=== PATIENT | female | born 1935 | race Caucasian/White ===

== ENCOUNTER 2020-02-29 08:38 | Observation (INO) | payer MEDICARE, OTHER ==
[2020-02-26 15:50] LABS: BASOPHILS # (AUTO) 0.1 (0.0-0.1); BASOPHILS % 0.8 % (0.0-1.0); EOSINOPHILS # (AUTO) 0.1 (0.0-0.4); HEMATOCRIT 41.4 % (34.2-44.1); HEMOGLOBIN 13.5 g/dL (12.0-16.0); LYMPHOCYTES # (AUTO) 2.5 (1.0-3.2); LYMPHOCYTES % 38.8 % (18.0-39.1); MEAN CORPUSCULAR HGB CONC 32.6 g/dL (31-35); MONOCYTES # (AUTO) 1.1 (0.2-0.8); NEUTROPHILS # (AUTO) 2.7 (2.1-6.9); NEUTROPHILS % 41.2 % (38.7-80.0); PLATELET COUNT 275 x10e3/uL (140-360); RED CELL DISTRIBUTION WIDTH 14.1 % (11.7-14.4)
[2020-02-26 16:09] LABS: ANION GAP 17.3 mmol/L (8-16); CALCIUM 9.5 mg/dL (8.4-10.2); CREATININE, SERUM 0.93 mg/dL (0.57-1.11); POTASSIUM 4.3 mmol/L (3.5-5.1)
[2020-02-26 16:23] LABS: ALBUMIN/GLOBULIN RATIO 1.1 (0.8-2.0)
--- NOTE | 2020-02-26 16:30 | Diagnostic Imaging Report ---
Exam: CHEST 2 VIEWS Date: 02/26/2020 4:24 PM INDICATION: ^[id number] ^[id number] ^PRE-OP Comparison: None FINDINGS: Lines/Tubes:None Lungs:The lungs are mildly hyperexpanded. No focal consolidation or pulmonary edema. Pleura:No pleural effusion. No pneumothorax. Heart/Mediastinum:Cardiomediastinal silhouette is within normal limits for size. Mild central vascular congestion is noted. Thoracic aorta is tortuous with calcifications of the aortic knob. Pleural thickening is noted at the apices. Bones/Soft Tissues: No acute osseous abnormality. Severe multilevel degenerative changes of the spine are noted. Upper abdomen: Unremarkable. IMPRESSION: 1. Negative for focal consolidation. 2. Mild hyperexpansion of the lungs can be seen in patients with COPD. Signed by: Indra Barrientos MD on 02/26/2020 4:27 PM
[~2020-02-29] VITALS: Ht 154.9 cm; Wt 69.9 kg
[~2020-02-29 08:38] MED LIST: ATENOLOL50 MG PO; HYDROCHLOROTHIA25 MG PO; METHENAMINE HIPP1 GM PO
[2020-02-29] MEDS ORDERED: ONDANSETRON HCL INJ 2MG/ML 2ML 2 MG/ML VIAL IV PRN (12:30)
[2020-02-29] MEDS ORDERED: HYDROMORPHONE 1MG/1ML INJ ONE ×2 (12:49→13:28)
[2020-02-29] MEDS ORDERED: MORPHINE SULFATE INJ 4 MG/ML INJ 1ML ONE (13:08)
--- OUTSIDE RECORDS SUMMARY | 2020-02-29 13:47 | XMS REPORT | Continuity of Care Document ---
Author Author [facility] t Organization [facility] Address [address] [place] [address] Phone Unavailable Care Team Providers Care Member Of [employer] Name Role Phone Asked, Pcp No PCP Unavailable Brenna BECK Attphys Unavailable Jenniffer Huitron NP Attphys Radha Vaca MA Attphys Unavailable Payers Payer Name Policy Type Policy Number Effective Date Expiration Date S sadaf MEDICAREMEDICARE PART A AND [id number]-PresentHOU MACIEJ IAMedicare xxxxxxxxxxx 1999 00:00:00 [place] AARPAARP SUPPLEMENTxxxxxxxxxxx2015-PresentCommercial xxxxxxxxxxx 2015 00:00:00 [place] Problems This patient has no known problems. Allergies, Adverse Reactions, Alerts This patient has no known allergies or adverse reactions. Family History Family Member Diagnosis Comments Start Date Stop Date Source Natural father Throat cancer [place] Natural mother Heart failure [place] Social History Social Habit Start Date Stop Date Quantity Comments Source History of tobacco use Current smoker [place] History SDOH Alcohol Std Drinks [place] History SDOH Alcohol Binge [place] Sex Assigned At [facility] [facility] Alcohol intake 2019-11-16 00:00:00 2019-11-16 00:00:00 Current drinker of alcohol (finding) [place] History SDOH Alcohol Frequency 2019-11-14 00:00:00 2019-11-14 00:00:0 0 2 [place] Alcohol Comment 2019-11-14 00:00:00 2019-11-14 00:00:00 social [place] Smoking Status Start Date Stop Date Source Former smoker 2019-11-16 00:00:00 2019-11-16 00:00:00 [place] Oconnor Medications Ordered Medication Name Filled Medication Name Start Date Stop Da te Current Medication? Ordering Clinician Indication Dosage Frequency Signature (SIG) Comments Components Source hydrochlorothiazide (HYDRODIURIL) 25 MG tablet 2019-11-16 09:17: 35 Yes 25mg QD Take 25 mg by mouth daily. Viki Oconnor methenamine (HIPREX) 1 gram tablet 2019-11-16 09:17:35 Yes 1g Q.5D Take 1 g by mouth 2 (two) times a day with meals. Willie Oconnor multivitamin with minerals tablet 2019-11-16 09:17:35 Yes 1{tbl} QD Take 1 tablet by mouth daily. Willie rodriguez conjugated estrogens (Premarin) 0.625 mg/gram vaginal cream 2019-11-16 00:00:00 Yes Vaginal atrophy Inse rt 0.5g vaginally nightly for 2 weeks then 3 x a week Willie Oconnor atenolol (TENORMIN) 25 MG tablet 2016-03-30 00:00:00 Yes TK 1 T PO QD [place] Oconnor Vital Signs Vital Name Observation Time Observation Value Comments Source Systolic blood pressure 2019-11-16 09:15:00 169 mm[Hg] Willie Oconnor Diastolic blood pressure 2019-11-16 09:15:00 74 mm[Hg] Willie Oconnor Heart rate 2019-11-16 09:15:00 72 /min [place] Oconnor Body weight 2019-11-16 09:15:00 69.854 kg [place] Oconnor Procedures Procedure Date / Time Performed Performing Clinician Sour e [id number] 2019-11-16 10:09:00 Sandhya Huitron ethodist POC URINALYSIS DIPSTICK 2019-11-16 10:00:00 Sandhya Huitron Plan of Care Planned Activity Planned Date Details Comments Source Future Scheduled Test 2020-03-28 00:00:00 INFLUENZA VACCINE [code = INFLUENZA VACCINE] Willie Oconnor Future Scheduled Test 1999 00:00:00 65+ PNEUMOCOCCAL V ACCINE (1 of 2 - PCV13) [code = 65+ PNEUMOCOCCAL VACCINE (1 of 2 - PCV13)] Willie Oconnor Future Scheduled Test 1984 00:00:00 SHINGLES VACCINES (#1) [code = SHINGLES VACCINES (#1)] [place] Yazidi Encounters Start Date/Time End Date/Time Encounter Type Admission Type Attendi [facility] Facility Care Department Encounter ID Source 2019-11-16 00:00:00 2019-11-16 00:00:00 Outpatient SHANTELL HUITRON OR [facility] [id number] [place] Results Test Description Test Time Test Comments Results Result Comments Source CHEST 2 VIEWS 2020-02-26 16:24:00 [facility] [address] [address] Patient Name: SARA DEAL MR #: [id number] : 1935 Age/Sex: 84/F Req #: [id number] Adm Physician: Ordered by: SONIA BECK MD Report #: [id number] Location: OR Room/Bed: Procedure: [id number] DX/CHEST 2 VIEWS Exam Date: 02/26/20 Exam Time: 1554 REPORT STATUS: Signed Exam: CHEST 2 VIEWS Date: 02/26/2020 4:24 PM INDICATION: [id number] 1554 PRE-OP Comparison: None FINDINGS: Lines/Tubes:None Lungs:The lungs are mildly hyperexpanded. No focal consolidation or pulmonary edema. Pleura:No pleural effusion. No pneumothorax. Heart/Mediastinum:Cardiomediastinal silhouette is within normal limits for size. Mild central vascular congestion is noted. Thoracic aorta is tortuous with calcifications of the aortic knob. Pleural thickening is noted at the apices. Bones/Soft Tissues: No acute osseous abnormality. Severe multilevel degenerative changes of the spine are noted. Upper abdomen: Unremarkable. IMPRESSION: 1. Negative for focal consolidation. 2. Mild hyperexpansion of the lungs can be seen in patients with COPD. Signed by: Sabina Barrientos MD on 02/26/2020 4:27 PM Dictated By: SABINA BARRIENTOS MD 26 Transcribed By: JAIDEN on 02/26/201626 COPY TO: SONIA BECK MD BREAST STEREO CORE BIOPSY RIGHT 2020-01-29 08:59:18 - BREAST STEREO CORE BIOPSY RIGHTSTEREOTACTIC GUIDED BIOPSY RIGHT BREAST WITH MARKING DEVICE INSERTED: 01/23/2020CLINICAL: Stereotactic biopsy, right breast. Comparison is made to exam dated 01/09/2020 mammogram - [facility]. A stereotactic guided biopsy was performed for the asymmetry located in the right breast asymmetry previously described as in the upper outer quadrant at 11:00 m iddle depth. This was described on the previous mammography report. The skin was prepped in the usual manner. Local anesthetic was administered to the access site. The abnormality was approached from the craniocaudal aspect - since this could not be localized on the RLM view (the best view where it was seen). A biopsy needle was placed adjacent to the abnormality under computer guidance and confirmatory stereotactic mammography images were obtained to document needle placement. Once the needle was documented to be in the correct location, a specimen was obtained using an automated biopsy gun. A clip was inserted into the biopsy cavity (M shape). The specimen was sent to the laboratory for pathological analysis. However, post procedure mammogram demonstrates the biopsy marker clip in the central breast and not upper outer quadrant focal asymmetry is noted on todays examination most consistent with superimposition of breast tissue. IMPRESSION: STEREOTACTIC GUIDED BIOPSYStereotactic guided biopsy of the asymmetry in the right breast was successful with no apparent post procedure complications. Waiting for pathology results. A final report will be issued when these become available. Previously described asymmetry is consistent with superimposition of breast tissue. Final Pathology:Benign fibroglandular breast parenchyma marker both regions are mildly proliferative fibrocystic alterations without atypia association with a dependent collagenous stroma.negative for atypia/in situ or invasive malignancy.Recommendation:Benign, concordant. While this biopsy was benign (M shaped clip), the ribbon marker clip biopsy is malignant with patient having extensive segmental calcifications. Please refer to that biopsy report for further management recommendations based on breast conservation desire. Surgical consultation for management of other biopsy showing DCIS is recommended. Shubham Jaime M.D. ss/:01/29/2020 08:59:18 Entry: 01/29/2020 11:27:31Imaging Technologist: Jessica BOSCH, [facility] BRE[facility] CORE BIOPSY RIGHT 2020-01-29 08:59:18 - BREAST STEREO CORE BIOPSY RIGHTSTEREOTACTIC GUIDED BIOPSY RIGHT BREAST WITH MARKING DEVICE INSERTED: 01/23/2020CLINICAL: Stereotactic biopsy, right breast. Comparison is made to exam [facility] A stereotactic guided biopsy was performed for the asymmetry located in the right breast asymmetry previously described as in the upper outer quadrant at 11:00 m iddle depth. This was described on the previous mammography report. The skin was prepped in the usual manner. Local anesthetic was administered to the access site. The abnormality was approached from the craniocaudal aspect - since this could not be localized on the RLM view (the best view where it was seen). A biopsy needle was placed adjacent to the abnormality under computer guidance and confirmatory stereotactic mammography images were obtained to document needle placement. Once the needle was documented to be in the correct location, a specimen was obtained using an automated biopsy gun. A clip was inserted into the biopsy cavity (M shape). The specimen was sent to the laboratory for pathological analysis. However, post procedure mammogram demonstrates the biopsy marker clip in the central breast and not upper outer quadrant focal asymmetry is noted on todays examination most consistent with superimposition of breast tissue. IMPRESSION: STEREOTACTIC GUIDED BIOPSYStereotactic guided biopsy of the asymmetry in the right breast was successful with no apparent post procedure complications. Waiting for pathology results. A final report will be issued when these become available. Previously described asymmetry is consistent with superimposition of breast tissue. Final Pathology:Benign fibroglandular breast parenchyma marker both regions are mildly proliferative fibrocystic alterations without atypia association with a dependent collagenous stroma.negative for atypia/in situ or invasive malignancy.Recommendation:Benign, concordant. While this biopsy was benign (M shaped clip), the ribbon marker clip biopsy is malignant with patient having extensive segmental calcifications. Please refer to that biopsy report for further management recommendations based on breast conservation desire. Surgical consultation for management of other biopsy showing DCIS is recommended. Shubham Jaime M.D. ss/:01/29/2020 08:59:18 Entry: 01/29/2020 11:27:31Imaging Technologist: Jessica Arshad , [facility] BREAST ULTRASOUND CORE BIOPSY RIGHT 2020-01-29 08:56:18 - BREAST ULTRASOUND CORE BIOPSY RIGHTULTRASOUND GUIDED BIOPSY RIGHT BREAST WITH MARKING DEVICE INSERTED: 01/23/2020CLINICAL: Ultrasound biopsy, right breast. Comparison is made to exams dated 01/09/2020 ultrasound and 01/09/2020 mammogram - [facility]. An ultrasound guided biopsy using real-time ultrasound was performed for the palpable indistinct mass located in the right breast at 9 o'clock, posterior depth. This was described on the previous ultrasound report. The skin was prepped in the usual manner. Local anesthetic was administered to the access site. The abnormality was approached from the lateral aspect. A biopsy needle was placed adjacent to the abnormality under ultrasound guidance. Once the needle was documented to be in the correct location, a specimen was obtained using a BARD biopsy device. A clip was inserted into the biopsy cavity (RIBBON). The specimen was sent to the laboratory for pathological analysis. IMPRESSION: ULTRASOUND GUIDED BIOPSYUltrasound guided biopsy of the mass in the right breast at 9 o'clock, posterior depth, was successful with no apparent post procedure complications. Waiting for pathology results. A final report will be issued when these become available. Final Pathology:Ductal carcinoma in situ, intermediate grade, cribriform pattern, focal early comedonecrosis. Negative for evidence of invasion.Recommendation:Malignant biopsy, concordant. Of note, patient's right breast has extensive segmental calcifications spanning 8 x 5 x 6 cm (ML x AP x SI) involving the central to lower breast with calcifications extending up to the nipple. If breast conservation is desired then medial calcifications should be biopsied to evaluate extent of disease / breast MRI with and without contrast. Surgical consultation for further management and complete excision is recommended at this time.Shubham Jaime M.D. /:01/29/2020 08:56:18 Entry: 01/29/2020 11:28:34Imaging Technologist: Diamante Dangelo , [facility] BREAST ULTRASOUND CORE BIOPSY RIGHT 2020-01-29 08:56:18 - BREAST ULTRASOUND CORE BIOPSY RIGHTULTRASOUND GUIDED BIOPSY RIGHT BREAST WITH MARKING DEVICE INSERTED: 01/23/2020CLINICAL: Ultrasound biopsy, right breast. Comparison is made to exams dated 01/09/2020 ultrasound and 01/09/2020 mammogram - [facility] An ultrasound guided biopsy using real-time ultrasound was performed for the palpable indistinct mass located in the right breast at 9 o'clock, posterior depth. This was described on the previous ultrasound report. The skin was prepped in the usual manner. Local anesthetic was administered to the access site. The abnormality was approached from the lateral aspect. A biopsy needle was placed adjacent to the abnormality under ultrasound guidance. Once the needle was documented to be in the correct location, a specimen was obtained using a Betaspring biopsy device. A clip was inserted into the biopsy cavity (RIBBON). The specimen was sent to the laboratory for pathological analysis. IMPRESSION: ULTRASOUND GUIDED BIOPSYUltrasound guided biopsy of the mass in the right breast at 9 o'clock, posterior depth, was successful with no apparent post procedure complications. Waiting for pathology results. A final report will be issued when these become available. Final Pathology:Ductal carcinoma in situ, intermediate grade, cribriform pattern, focal early comedonecrosis. Negative for evidence of invasion.Recommendation:Malignant biopsy, concordant. Of note, patient's right breast has extensive segmental calcifications spanning 8 x 5 x 6 cm (ML x AP x SI) involving the central to lower breast with calcifications extending up to the nipple. If breast conservation is desired then medial calcifications should be biopsied to evaluate extent of disease / breast MRI with and without contrast. Surgical consultation for further management and complete excision is recommended at this time.Shubham Jaime M.D. ss/:01/29/2020 08:56:18 Entry: - 01/29/2020 11:28:34Imaging Technologist: Diamante Dangelo , [facility] DI[facility] MAMM BILATERAL GUNJAN CAD DIGITAL 2020-01-09 14:04:00 - DIAG MAMM BILATERAL GUNJAN CAD DIGITALBILATERAL DIGITAL DIAGNOSTIC MAMMOGRAM 3D/2D WITH CAD: 01/09/2020Digital breast tomosynthesis was performed in addition to routine CC and MLO views. Current mammographic images were evaluated by either a Touchotel M- Vu or a Soflow ImageChecker CAD (computer aided detection system). No prior exams were available for comparison. The tissue of both breasts is fibrog landular. A palpable marker is placed at the site of concern in the right breast at 9:00 and segmentally distributed coarse heterogenous calcifications are identified. Additionally an 8 millimeter focal asymmetry best seen in the RLM view (slice 19) at 11/12 o'clock, 5 cm from the nipple.No suspicious mass, architectural distortion, malignant type calcification, or lymph node abnormality detected in the left breast. INCOMPLETE: ADDITIONAL IMAGING EVALUATION NEEDEDSegmentally distributed coarse heterogenous calcifications and a focal asymmetry in the right breast. Targeted right and bilateral survey ultrasound to follow.- BREAST ULTRASOUND BILATERALULTRASOUND OF BOTH BREASTS: 01/09/2020No prior exams were available for comparison. Color flow and real-time ultrasound of both breasts were performed. Todd scale images of the real-time examination were reviewed. The breast tissue has heterogenous background echotexture. Targeted ultrasound demonstrates a hypoechoic mass with calcifications that measures 21 x 13 x 6 mm at 9 o'clock,, 2 centers from nipple at the site of proper of concern. This area correlates with the area of multiple calcifications as seen on the mammogram. Other characteristics include hypoechogenicity and internal vascularity. The rest of the bilateral survey ultrasound is negative. No axillary lymphadenopathy.IMPRESSION: SUSPICIOUS OF MALIGNANCY - FOLLOW-UP RECOMMENDED1. Hypoechoic mass at the site of palpable area of concern in the right breast at 9 o'clock, anterior depth. BI-RADS IVb. Ultrasound guided core biopsy is recommended at this time and confirmation of septations within the post biopsy samples is also recommended.2. An 8mm focal asymmetry at 11/12 o'clock, middle depth. Tomosynthesis guided core biopsy is recommended at this time, and if on the day of biopsy this cannot be visualized then a short-term follow-up is recommended.Shubham Jaime M.D. ss/:01/09/2020 14:04:00 Entry: - 01/10/2020 08:09:07Imaging Technologist: Laverne Beck , [facility] sent: BIRADS 4/5 Biopsy Mammogram BI-RADS: 0 Incomplete: Additional Imaging Evaluation Needed Ultrasound BI-RADS: 4b Suspicious abnormality - intermediate suspicion of malignancy BREAST ULTRASOUND BILATERAL 2020-01-09 14:04:00 - DIAG MAMM BILATERAL GUNJAN CAD DIGITALBILATERAL DIGITAL DIAGNOSTIC MAMMOGRAM 3D/2D WITH CAD: 01/09/2020Digital breast tomosynthesis was performed in addition to routine CC and MLO views. Current mammographic images were evaluated by either a Touchotel M- Vu or a Soflow ImageChecker CAD (computer aided detection system). No prior exams were available for comparison. The tissue of both breasts is fibrog landular. A palpable marker is placed at the site of concern in the right breast at 9:00 and segmentally distributed coarse heterogenous calcifications are identified. Additionally an 8 millimeter focal asymmetry best seen in the RLM view (slice 19) at 11/12 o'clock, 5 cm from the nipple.No suspicious mass, architectural distortion, malignant type calcification, or lymph node abnormality detected in the left breast. INCOMPLETE: ADDITIONAL IMAGING EVALUATION NEEDEDSegmentally distributed coarse heterogenous calcifications and a focal asymmetry in the right breast. Targeted right and bilateral survey ultrasound to follow.- BREAST ULTRASOUND BILATERALULTRASOUND OF BOTH BREASTS: 01/09/2020No prior exams were available for comparison. Color flow and real-time ultrasound of both breasts were performed. Todd scale images of the real-time examination were reviewed. The breast tissue has heterogenous background echotexture. Targeted ultrasound demonstrates a hypoechoic mass with calcifications that measures 21 x 13 x 6 mm at 9 o'clock,, 2 centers from nipple at the site of proper of concern. This area correlates with the area of multiple calcifications as seen on the mammogram. Other characteristics include hypoechogenicity and internal vascularity. The rest of the bilateral survey ultrasound is negative. No axillary lymphadenopathy.IMPRESSION: SUSPICIOUS OF MALIGNANCY - FOLLOW-UP RECOMMENDED1. Hypoechoic mass at the site of palpable area of concern in the right breast at 9 o'clock, anterior depth. BI-RADS IVb. Ultrasound guided core biopsy is recommended at this time and confirmation of septations within the post biopsy samples is also recommended.2. An 8mm focal asymmetry at 11/12 o'clock, middle depth. Tomosynthesis guided core biopsy is recommended at this time, and if on the day of biopsy this cannot be visualized then a short-term follow-up is recommended.Shubham Jaime M.D. ss/:01/09/2020 14:04:00 Entry: marilia - 01/10/2020 08:09:07Imaging Technologist: Laverne BOSCH, [facility] sent: BIRADS 4/5 Biopsy Mammogram BI-RADS: 0 Incomplete: Additional Imaging Evaluation Needed Ultrasound BI-RADS: 4b Suspicious abnormality - intermediate suspicion of malignancy POC BLADDER SCAN/PVR 2019-11-16 10:09:00 Test Item Urine volume (test code = 6354) 139 ML [facility] urinalysis [id number] 10:00:00* Test Item Value Reference Range Interpretation Comments Color urine, POC (test code = 7406449) Dark Yellow Clarity urine, POC (test code = 8935395) Slightly Cloudy Glucose urine, POC (test code = 3114531) Negative Negative Bilirubin urine, POC (test code = 5390040) Negative Negative Ketones urine, POC (test code = 5831047) Trace Negative A Specific gravity urine, POC (test code = 9365118) 1.015 1.00 5-1.030 Blood urine, POC (test code = 6595676) Large Negative A pH urine, POC (test code = 7692842) 5.0 5.0, 5.5, 6. 0, 6.5, 7.0, 7.5, 8.0, 8.5 Protein urine, POC (test code = 3079119) 1+ Negative A Urobilinogen urine, POC (test code = 3015887) <2.0 <2.0 Nitrite urine, POC (test code = 7185351) Negative Negative Leukocyte esterase urine, POC (test code = 1732058) Trace Ne gative A Lab Interpretation (test code = 28962-1) Abnormal [facility]
--- OUTSIDE RECORDS SUMMARY | 2020-02-29 13:47 | XMS REPORT | Clinical Summary ---
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 tablet Active methenamine (HIPREX) 1 Take 1 g by 0 gram tablet mouth 2 (two) times a day with meals. Active multivitamin with Take 1 tablet 0 minerals tablet by mouth daily. Active conjugated estrogens Insert 0.5g 30 g 1 11/15 (Premarin) 0.625 mg/gram vaginally 0 vaginal creamIndications: nightly for 2 Complete uterine weeks then 3 prolapse, Prolapse of x a week anterior vaginal wall, Rectocele, Incomplete bladder emptying, Vaginal atrophy Active Problems No known active problems Encounters Care Team Description Date Type Specialty Sandhya Westbrook NP Complete uterine prolapse (Primary Dx); Prolapse of anterior vaginal wall; Rectocele; Incomplete bladder emptying; Vaginal atrophy 11/16/2019 Office Visit Urogynecology 11/16/2019 Travel Sandhya Westbrook NP 11/14/2019 Abstract Urogynecology Sandhya Westbrook NP 11/03/2019 Telephone Urogynecology 10/17/2019 Travel Radha Vaca MA 10/17/2019 Telephone Gynecologic Oncolog y after 02/28/2019 Family History Medical History Relation Name Comments Throat cancer Father Heart failure Mother Relation Name Status Comments Father Mother Social History Date Tobacco Use Types Packs/Day Years Used Quit: 1953 Former Smoker 2 Smokeless Tobacco: Never Used Drinks/Week oz/Week Comments Alcohol Use social Yes Alcohol Habits Answer Date Recorded How often do you have a drink containing alcohol? Monthly or less 11/14/2019 How many drinks containing alcohol do you have on No t asked a typical day when you are drinking? How often do you have six or more drinks on one Not asked occasion? Sex Assigned at Date Recorded Not on file Industry Job Start Date Occupation Not on file Not on file Not on file Travel End Travel History Travel Start No recent travel history available. Last Filed Vital Signs Reading Time Taken Comments Vital Sign 169/74 11/16/2019 9:15 AM CDT Blood Pressure 72 11/16/2019 9:15 AM CDT Pulse - - Temperature - - Respiratory Rate - - Oxygen Saturation - - Inhaled Oxygen Concentration 69.9 kg (154 lb) 11/16/2019 9:15 AM CDT Weight - - Height - - Body Mass Index Plan of Treatment Health Maintenance Due Date Last Done Comments SHINGLES VACCINES (#1) 1984 65+ PNEUMOCOCCAL VACCINE 1999 (1 of 2 - PCV13) INFLUENZA VACCINE 03/28/2020 Procedures Comments Procedure Name Priority Date/Time Associated Diag nosis [id number] Routine 11/16/2019 Complete uterin e prolapse 10:09 AM CDT Vaginal atrophy POC URINALYSIS DIPSTICK Routine 11/16/2019 Comple te uterine prolapse 10:00 AM CDT after 02/28/2019 Results * POC BLADDER SCAN/PVR (11/16/2019 10:09 AM CDT) Urine volume 139 ML Specimen Urine * POC urinalysis dipstick (11/16/2019 10:00 AM CDT) Color urine, Dark Yellow POC Clarity urine, Slightly Cloudy POC Glucose urine, Negative Negative POC Bilirubin Negative Negative urine, POC Ketones urine, Trace (A) Negative POC Specific 1.015 1.005 - 1.030 gravity urine, POC Blood urine, Large (A) Negative POC pH urine, POC 5.0 5.0, 5.5, 6.0, 6.5, 7.0, 7.5, 8.0, 8.5 Protein urine, 1+ (A) Negative POC Urobilinogen <2.0 <2.0 urine, POC Nitrite urine, Negative Negative POC Leukocyte Trace (A) Negative esterase urine, POC Specimen Urine after 02/28/2019 Insurance Type Payer Benefit Subscriber ID Effective Phone Address Plan / Dates Group Medicare MEDICARE MEDICARE xxxxxxxxxxx 1999- [place], PART A AND Present [place] AARP AARP xxxxxxxxxxx [id number] SUPPLEMENT resent Advance Directives For more information, please contact: [phone] Patient Limb Driver Explanation Type Date Recorded Advance Directives, Living Will and Medical Power of Merchandise Planner
--- NOTE | 2020-02-29 14:14 | Operative Report ---
DATE OF PROCEDURE: 02/29/2020 SURGEON: Andres Beck MD PREOPERATIVE DIAGNOSIS: Carcinoma of the right breast. POSTOPERATIVE DIAGNOSIS: Carcinoma of the right breast. OPERATION PERFORMED: Right total mastectomy. CATERPILLAR MECHANIC: FIFI Mccoy. ANESTHESIA: General. COMPLICATIONS: None. ESTIMATED BLOOD LOSS: 25 mL. DESCRIPTION OF PROCEDURE: With the patient lying in bed in the supine position under good general anesthesia, the chest was prepped with Betadine solution and draped in the usual manner. An elliptical incision was then made to include the nipple areolar complex. Flaps were then developed in all directions with the margins being medially the sternum, superiorly the clavicle, inferiorly the rectus sheath and laterally the latissimus and the pectoralis fascia was then identified and the breast was slowly and carefully taken off the pectoralis muscle from medial to lateral. All bleeding points were carefully electrocoagulated and the breast was totally taken off and sent for pathological examination. The whole area was thoroughly irrigated. Perfect hemostasis was ascertained. A 10 flat Kevin-Bach drain was then left in the wound and brought out through a separate stab wound incision and sutured to the skin with 2-0 silk and the wound was then closed with interrupted vertical mattress sutures of 2-0 and 3-0 silk. A dressing was applied. The sponge, lap, and needle count was correct. The patient tolerated the procedure well and returned to the recovery room in stable condition. Andres Beck MD JLR/MODL /[id number]
--- NOTE | 2020-02-29 15:20 | NUR ---
Recvd patient from PACU, AAOX3, Rt breast dressing is intact, jonnathan drain ON, CALL LIGHT IN REACH
[2020-02-29] MEDS: SODIUM CHLORIDE 0.9% 1000ML 1,000 ML IV SCH (17:05)
[2020-02-29 17:21] VITALS: BP 129/68
[2020-02-29 17:27] VITALS: BP 129/68
[2020-02-29] MEDS: CEFAZOLIN SOD 1 GM/NS 50ML 50 ML IV SCH (17:36)
[2020-02-29] MEDS ORDERED: FENTANYL CITRATE/PF 100MCG/2 ML INJ ONE (19:54)
[2020-02-29] MEDS ORDERED: DEXAMETHASONE SOD PHOS INJ 4 MG/ML VIAL ONE (19:58)
[2020-02-29] MEDS ORDERED: ONDANSETRON HCL INJ 2MG/ML 2ML 2 MG/ML VIAL ONE (19:58)
[2020-02-29] MEDS ORDERED: LIDOCAINE HCL 2% LOCAL INJ 5 ML SDV VIAL INJ ONE (19:58)
[2020-02-29] MEDS ORDERED: EPHEDRINE SULFATE INJ 50 MG/ML VIAL ONE (19:58)
[2020-02-29] MEDS ORDERED: SEVOFLURANE INHAL SOLN 250 ML PEN BTL ONE (19:58)
[2020-02-29] MEDS ORDERED: PROPOFOL IV EMULSION 10 MG/ML 20 ML VIAL ONE (19:58)
[2020-02-29 20:00] VITALS: BP 145/67
[2020-02-29] MEDS ORDERED: ATENOLOL 50 MG TAB PO SCH (21:00)
[2020-03-01] VITALS: BP 119/72
[2020-03-01] MEDS: CEFAZOLIN SOD 1 GM/NS 50ML 50 ML IV SCH (02:28)
[2020-03-01] MEDS: ACETAMINOPHEN/CODEINE 300MG - 30MG TAB PO PRN ×2 (02:37→10:57)
[2020-03-01 04:00] VITALS: BP 106/57
[2020-03-01] MEDS: SODIUM CHLORIDE 0.9% 1000ML 1,000 ML IV SCH (05:51)
[2020-03-01 08:00] VITALS: BP 115/54
[2020-03-01 08:52] VITALS: BP 115/54
[2020-03-01] MEDS ORDERED: METHENAMINE HIPPURATE PO SCH (09:00)
[2020-03-01] MEDS ORDERED: HYDROCHLOROTHIAZIDE 25 MG TAB PO SCH (09:00)
[2020-03-01 12:00] VITALS: BP 115/62
--- NOTE | 2020-03-01 16:11 | NUR ---
Patient discharged home, Daughter Christy was here , demonstrated how to empty JOSH drain and she re-demonstrated. Dressing intact, denies any pain, no distress noted, Prescription given, Patient already scheduled appointment on Wednesday. IV canula removed with tip intact. no SS of infiltration noted. Transported via wheelchair to [facility]
== END 2020-03-01 16:00 | disposition home or self-care (01) ==
LOC: OR 08:38 → PACU V 12:30 → MED/SURG 15:08
PROVIDERS: ADMIT Surgery; ATTEND Surgery
DX: D05.11 Intraductal carcinoma in situ of right breast (principal); Z01.810 Encounter for preprocedural cardiovascular examination; Z01.812 Encounter for preprocedural laboratory examination; Z01.818 Encounter for other preprocedural examination; Z11.59 Encounter for screening for other viral diseases; I10 Essential (primary) hypertension
CPT/HCPCS: 19303; 36415; 71046; 80053; 85025; 88309; 93005; G0378 ×2; J0690 ×2; J1100; J1170; J2001; J2270; J2405; J2704; J3010; J7030 ×2; U0002